=== PATIENT | male | born 1975 | race African-American/Black ===

== ENCOUNTER 2021-07-15 09:43 | Emergency (ER) | payer MEDICAID ==
[~2021-07-15] VITALS: Ht 177.8 cm; Wt 72.0 kg
[2021-07-15] MEDS ORDERED: IBUPROFEN 800MG TABLET PO ONE (10:30)
[2021-07-15 11:20] VITALS: BP 131/89
== END 2021-07-15 11:58 | disposition home or self-care (01) ==
LOC: ER 09:43
DX: M24.411 Recurrent dislocation, right shoulder (principal); F12.10 Cannabis abuse, uncomplicated; F17.210 Nicotine dependence, cigarettes, uncomplicated
CPT/HCPCS: 73030; 99283; L3670

== ENCOUNTER 2024-02-11 11:16 | Emergency (ER) | payer SELFPAY ==
[~2024-02-11] VITALS: Ht 172.7 cm; Wt 70.0 kg
[2024-02-11 11:17] VITALS: O2SAT 97
[2024-02-11 11:34] VITALS: BP 138/97; PULSE 61; RESP 14; TEMP 98.1
[2024-02-11] MEDS: LORAZEPAM 2MG/ML INJ IV ONE (12:58)
[2024-02-11] MEDS: SODIUM CHLORIDE 0.9% 1,000 ML IV ONE (12:58)
[2024-02-11] MEDS: ONDANSETRON HCL 4MG/2ML INJ IV STA (12:58)
[2024-02-11] MEDS: FAMOTIDINE 20MG/2ML VIAL IV ONE (12:59)
[2024-02-11 13:08] LABS: CARBON DIOXIDE 26 mEq/L (21-32); CHLORIDE 110 mEq/L (98-107); POTASSIUM 3.5 mEq/L (3.5-5.1); SODIUM 142 mEq/L (136-145)
[2024-02-11 13:09] LABS: CALCIUM 9.3 mg/dL (8.7-10.4)
[2024-02-11 13:11] LABS: INR 0.9; PROTHROMBIN TIME 10.3 sec (9.6-11.0)
[2024-02-11 13:13] LABS: CREATININE 0.9 mg/dL (0.6-1.3)
[2024-02-11 13:14] LABS: GLUCOSE 101 mg/dL (70-105); UREA NITROGEN BLOOD 14 mg/dL (9-23)
[2024-02-11 13:15] LABS: ALANINE AMINOTRANSFERASE 19 IU/L (10-49); ALBUMIN 4.7 g/dL (3.2-4.8); ASPARTATE AMINOTRANSFERASE 31 IU/L (<34); BASOPHILS % 1.3 % (0.0-2.0); EOSINOPHILS % 0.9 % (0.0-5.0); HEMATOCRIT. 41.8 % (42.0-52.0); HEMOGLOBIN. 14.8 g/dL (14.0-18.0); LYMPHOCYTES % 36.8 % (20.0-50.0); MEAN CORPUSCULAR HEMOGLOBIN 33.9 pg (28.0-32.0); MEAN CORPUSCULAR HGB CONC 35.4 g/dL (31.0-37.0); MEAN CORPUSCULAR VOLUME 95.8 fL (80.0-94.0); MEAN PLATELET VOLUME 7.1 fl (7.4-10.4); MONOCYTES % 9.8 % (2.0-8.0); NEUTROPHILS % 51.2 % (40.0-76.0); PLATELET 268 x1000/uL (130-400); RED BLOOD CELL COUNT 4.36 mill/uL (4.7-6.1); RED CELL DISTRIBUTION WIDTH 12.3 % (11.6-14.6); WHITE BLOOD COUNT 7.6 x1000/uL (4.5-11.0)
[2024-02-11 13:16] LABS: BILIRUBIN TOTAL 0.5 mg/dL (0.1-1.0); PROTEIN TOTAL 7.6 g/dL (6.0-8.3)
[2024-02-11 13:19] LABS: ETHANOL BLOOD < 10 mg/dL (<10)
[2024-02-11 15:18] LABS: *AMPHETAMINES SCREEN URINE PRESUMPTIVE POSITIVE (NEGATIVE); *BARBITURATES SCREEN URINE NEGATIVE (NEGATIVE); *BENZODIAZEPINES SCREEN URINE NEGATIVE (NEGATIVE)
[2024-02-11 15:19] LABS: *COCAINE SCREEN URINE NEGATIVE (NEGATIVE); CANNABINOID URINE SCREEN PRESUMPTIVE POSITIVE (NEGATIVE); ECSTASY MDMA SCREEN URINE NEGATIVE (NEGATIVE); METHADONE URINE SCREEN Neg (NEGATIVE); OPIATES URINE SCREEN NEGATIVE (NEGATIVE); PHENCYCLIDINE URINE SCREEN NEGATIVE (NEGATIVE)
[2024-02-11 15:42] LABS: BG BASE EXCESS -3.4 mmol/L (-2.0-2.0); BG CARBOXYHEMOGLOBIN 3.4 % (0.5-1.5); BG FRACTION INSPIRED OXYGEN 21; BG HCO3 ACT 20.6 mmol/L (22.0-26.0); BG METHEMOGLOBIN 0.3 % (0.0-1.5); BG OXYGEN SATURATION 97.9 % (92.0-98.5); BG OXYHEMOGLOBIN 94.3 % (94.0-97.0); BG PCO2 34.1 mmHg (35.0-45.0); BG PH 7.398 (7.350-7.450); BG PO2 110.1 mmHg (75.0-100.0); BG SAMPLE SITE RIGHT RADIAL; BG TOTAL HEMOGLOBIN 15.8 g/dL (12.0-18.0); BG VENT MODE ROOM AIR
== END 2024-02-11 16:02 | disposition home or self-care (01) ==
LOC: ER 11:16
DX: T43.651A Poisoning by methamphetamines accidental (unintentional), initial encounter (principal); F12.90 Cannabis use, unspecified, uncomplicated; Y92.89 Other specified places as the place of occurrence of the external cause
CPT/HCPCS: 80053; 80305; 80320; 83690; 83930; 85025; 85610; 36415; 82805; 82375; 96374; 96375; 99284; 36600; J3490; J2060; J2405; J7030; Z7610 ×2; G0480

== ENCOUNTER 2024-03-01 16:00 | Emergency (ER) | payer SELFPAY ==
[~2024-03-01] VITALS: Ht 177.8 cm; Wt 75.0 kg
[2024-03-01 16:03] VITALS: O2SAT 97
[2024-03-01] MEDS: SODIUM CHLORIDE 0.9% 1,000 ML IV ONE (16:44)
[2024-03-01] MEDS: ONDANSETRON HCL 4MG/2ML INJ IV ONE (16:44)
[2024-03-01 21:10] VITALS: BP 112/86; PULSE 102; RESP 18; TEMP 98.5
== END 2024-03-01 21:37 | disposition home or self-care (01) ==
LOC: ER 16:00
DX: R11.0 Nausea (principal); F12.10 Cannabis abuse, uncomplicated; F15.10 Other stimulant abuse, uncomplicated
CPT/HCPCS: 96360; 99283; J2405; J7030; Z7610

== ENCOUNTER 2024-04-15 11:03 | Emergency (ER) | payer OTHER ==
[~2024-04-15] VITALS: Ht 170.2 cm; Wt 64.0 kg
[2024-04-15 11:11] VITALS: O2SAT 99
[2024-04-15] MEDS: ASPIRIN 81MG TABLET PO ONE (12:09)
[2024-04-15 12:31] LABS: BASOPHILS % 0.8 % (0.0-2.0); EOSINOPHILS % 0.8 % (0.0-5.0); HEMATOCRIT. 40.9 % (42.0-52.0); HEMOGLOBIN. 13.9 g/dL (14.0-18.0); LYMPHOCYTES % 40.7 % (20.0-50.0); MEAN CORPUSCULAR HEMOGLOBIN 32.9 pg (28.0-32.0); MEAN CORPUSCULAR VOLUME 96.8 fL (80.0-94.0); MEAN PLATELET VOLUME 6.5 fl (7.4-10.4); MONOCYTES % 9.3 % (2.0-8.0); NEUTROPHILS % 48.4 % (40.0-76.0); PLATELET 277 x1000/uL (130-400); RED BLOOD CELL COUNT 4.23 mill/uL (4.7-6.1); RED CELL DISTRIBUTION WIDTH 12.6 % (11.6-14.6); WHITE BLOOD COUNT 7.3 x1000/uL (4.5-11.0)
[2024-04-15 12:36] LABS: CHLORIDE 104 mEq/L (98-107); SODIUM 139 mEq/L (136-145)
[2024-04-15 12:37] LABS: CARBON DIOXIDE 28 mEq/L (21-32)
[2024-04-15 12:38] LABS: CALCIUM 9.7 mg/dL (8.7-10.4)
[2024-04-15 12:42] LABS: CREATININE 1.1 mg/dL (0.6-1.3)
[2024-04-15 12:43] LABS: GLUCOSE 95 mg/dL (70-105); UREA NITROGEN BLOOD 15 mg/dL (9-23)
[2024-04-15 12:44] LABS: TROPONIN I HIGH SENSITIVITY 6 ng/L (3.0-53)
[2024-04-15 13:08] LABS: ETHANOL BLOOD < 10 mg/dL (<10)
[2024-04-15 13:18] LABS: BG BASE EXCESS 1.6 mmol/L (-2.0-2.0); BG CARBOXYHEMOGLOBIN 3.1 % (0.5-1.5); BG DEOXYHEMOGLOBIN 2.4 % (0.0-5.0); BG FRACTION INSPIRED OXYGEN 21; BG HCO3 ACT 26.6 mmol/L (22.0-26.0); BG METHEMOGLOBIN 0.3 % (0.0-1.5); BG OXYGEN SATURATION 97.5 % (92.0-98.5); BG OXYHEMOGLOBIN 94.2 % (94.0-97.0); BG PCO2 42.9 mmHg (35.0-45.0); BG PO2 97.3 mmHg (75.0-100.0); BG SAMPLE SITE RIGHT BRACHIAL; BG TOTAL HEMOGLOBIN 14.6 g/dL (12.0-18.0); BG VENT MODE ROOM AIR
[2024-04-15 15:09] VITALS: BP 129/79; PULSE 68; RESP 15; TEMP 98.8
== END 2024-04-15 15:13 | disposition home or self-care (01) ==
LOC: ER 11:33
DX: R53.1 Weakness (principal); F15.10 Other stimulant abuse, uncomplicated; F22 Delusional disorders; F12.10 Cannabis abuse, uncomplicated
CPT/HCPCS: 80048; 80320; 83880; 85025; 84484; 36415; 71045; 82805; 82375 ×2; 93005; 99285; 36600; Z7610 ×4; G0480